=== PATIENT | female | born 1995 | race Native Hawaiian/Other Pacific Islander ===

== ENCOUNTER 2024-04-15 13:29 | Outpatient (CLI) | payer OTHER, MEDICAID, SELFPAY ==
--- OUTSIDE RECORDS SUMMARY | 2024-04-16 23:57 | XMS_ITS | Clinical Summary ---
Author Organization [facility] [facility] Address [place], [place] [address] Care Team Providers Care Crime Investigator Special Agent Name Role Phone CYNTHIA Mckoy Elizabeth Unavailable [phone] Aranza Mendez MD Primary Care Provi eloisa [...] Description 04/13/2024 8:25 AM CDT OB Encounter [address] [address] Aranza Mendez MD Testing (Group B strep); Care (37w2d) 04/13/2024 Travel 04/09/2024 1:10 PM CDT OB Encounter [address] [address] Aranza Mendez MD Care (36w5d) 04/09/2024 9:56 AM CDT - 04/09/2024 11:59 PM CDT Hospital Encounter [facility] [address] [place] [address] Varicose veins during ; Class 2 severe obesity with body mass index (BMI) of 35 to 39.9 with serious comorbidity (HC); Encounter for supervision of other normal in third trimester 04/09/2024 Travel 03/26/2024 10:55 AM CDT OB Encounter [address] [address] Aranza Mendez MD Care (34w5d) 03/26/2024 Travel 03/09/2024 8:45 AM CDT Office Visit [address] [address] Karina Bennett MD Varicose Veins (Have gotten worse since last OB visit. Painful, sometimes they are warm and swollen) 03/09/2024 Travel 03/09/2024 Nurse Triage [address] [address] Aranza Mendez MD Leg Pain/problem 03/06/2024 10:20 AM CDT Office Visit [facility] [address] [place] [phone] Maria C Hoover, ROYCE Eye Exam 03/06/2024 Travel 02/15/2024 8:25 AM CDT OB Encounter [address] [address] Aranza Mendez MD Care (29w0d) 02/15/2024 Travel 01/16/2024 11:20 AM CDT OB Encounter [address] [address] Aranza Mendez MD Care (24w5d) 01/16/2024 Travel [...] Estimated Date of Delivery 09/16/2023 - Present (04/16/2024) 05/02/2024 (set by Eva Mendez MD on 10/17/2023 based on Ultrasound on 09/27/2023) Dating Summary Based On MARIA DEL ROSARIO GA Diff Last Menstrual Period on 07/20/2023 (Within Week s) 04/25/2024 +1w0d Ultrasound on 09/27/2023 05/02/2024 Working GA:8w6d Alternate MARIA DEL ROSARIO Entry 04/25/2024 +1w0d Overview and Plan sex:Male Delivery Plans Planned delivery method:Vaginal Planned anesthesia:None Vitals Pregravid Weight Height TWG (As of 04/16/2024) Pregrav id BMI 1.594 m (5' 2.75) [...] alone Communication Method: Patient is active on Omeros and has been instructed that results/communications will be made via Omeros If a phone call is needed, the [...] repeat growth ultrasound pending. Vitamin D: take 6220-0597 daily. Continue prenatals. ~ Follow up: 1 [...] other Communication Method: Patient is active on Omeros and has been instructed that results/communications will be made via Omeros If a phone call is needed, the [...] repeat in third trimester. Vitamin D: take 0948-9204 daily. Continue prenatals. THUAN: -Continue iron, check [...] alone Communication Method: Patient is active on Omeros and has been instructed that results/communications will be made via Omeros If a phone call is needed, the [...] at night. Any Vaginal Bleeding?: no Contractions?: [place] spivey Urinary Complaints?: no Movement: yes Patient [...] return OB visit. ICD-10-CM 1. Need for fsmbmmimdz-saxvxsg-nqwyauxhi (Tdap) vaccine Z23 2. Supervision of other [...] repeat in third trimester. Vitamin D: take 3212-0930 daily. Continue prenatals. THUAN: -Continue iron, check [...] alone Communication Method: Patient is active on Omeros and has been instructed that results/communications will be made via Omeros If a phone call is needed, the preferred number is: Mobile May we leave a detailed message at this number? Yes Tiffanie Valerio, [facility] 01/16/2024 11:41 AM See OB Vitals section [...] repeat in third trimester. Vitamin D: take 5150-3914 daily. Continue prenatals. ~ Follow up: 4 [...] other Communication Method: Patient is active on Omeros and has been instructed that results/communications will be made via Omeros If a phone call is needed, the [...] ultrasound recommended -Hemoglobin a1c Vitamin D: take 1218-1561 daily. Continue prenatals. Satisfactory exam. Demonstrates appropriate [...] been talking with public health from the [facility] for services. Has WIC. Has a [...] Pap smear for cervical cancer screening Z12.4 SKI PATROL OFFICER THIN PREP PAP SCREEN IMAGED 7. BV [...] ultrasound recommended -Hemoglobin a1c Vitamin D: take 6334-4889 daily. Continue prenatals. Satisfactory exam. Demonstrates appropriate [...] Total time preparing to see this patient, swkn-mu-hhqt time, and coordinating care time on the same calendar date: 45 minutes. GRITY CONSULTANT Progress Notes - OB Encounte r - 09/16/2023 - GA:7w2d 09/16/2023 - 7w2d - Ashley Spencer RN See staff note. Ashley Spencer RN .................... 09/16/2023 9:48 AM GRITY CONSULTANT Last Filed Vital Signs Vital Sign Reading Time Taken Comments Blood Pressure 104/66 04/13/2024 8:38 AM CDT Pulse 80 04/13/2024 8:38 AM CDT Temperature 36.7 ??C (98.1 ??F) 08/15/2020 7:17 AM CS T Respiratory Rate 12 03/09/2024 8:58 AM CDT Oxygen Saturation 98% 08/15/2020 11:07 AM INTEGRITY CONSULTANT Inhaled Oxygen Concentration - - Weight 97.6 kg (215 lb 3.2 oz) 04/13/2024 8:38 A M CDT Height 159.4 cm (5' 2.75) 09/16/2023 9:50 AM CS T Body Mass Index 38.43 09/16/2023 9:50 AM INTEGRITY CONSULTANT Plan of Treatment Upcoming Encounters Date Type Department Care Team (Late st Contact Info) Description 04/18/2024 11:45 AM CDT OB Encounter [address] [phone] Aranza Mendez MD [address] [place] [address] 04/23/2024 11:45 AM CDT OB Encounter [facility] [address] [place] [address] Aranza Mendez MD [address] [place] [address] 05/02/2024 Hospital Encounter [facility] [address] [place] [address] Aranza Mendez MD [address] [place] [address] 05/02/2024 1:10 PM CDT OB Encounter [address] [place] [phone] Aranza Mendez MD 100 [facility] [place] [address] 05/07/2024 1:10 PM CDT OB Encounter [facility] [address] [facility] [phone] Aranza Mendez MD [address] [facility], [place] [phone] Health Maintenance Due Date Last Done Comments [...] SIGNS OF RELAPSE Diet Rosita Russo V, BRIDAL GOWN FITTER Note: Patient will be able to get her medications, Zoloft, to manage her symptoms of depression. Other Diet No Rosita Tobar LICSW Note: Patient will enroll in the [employer] care academy. Other General Yes Rosita Tobar [...] HPV THIN PREP Routine 10/17/2023 2:11 PM INTEGRITY CONSULTANT Pap smear for cervical cancer screening ANTI HIV 1/2 Routine 09/27/2023 9:00 AM INTEGRITY CONSULTANT Possible , not yet confirmed ANTI HCV Routine 09/27/2023 9:00 AM INTEGRITY CONSULTANT Possible , not yet confirmed from Last [...] - 16.0 g/dL 03/26/2024 12:04 PM CDT [facility] MCV 83 80 - 100 fL 03/26/2024 12:04 PM T [facility] Blood BLOOD SPECIMEN / Unknown Venipuncture / Unknown 03/26/2024 11:50 AM CDT 03/26/2024 11:51 AM CDT Aranza Mendez MD HEMATOLOGY [facility] [address] [place] [address] * VITAMIN D 25 (DEFICIENCY) (01/16/2024 12:34 PM CDT) VITAMIN D TOTAL 30.6 20.0 - 80.0 ng/mL 01/17/2024 11:33 AM CDT [facility] Blood BLOOD SPECIMEN / Unknown Venipuncture / Unknown 01/16/2024 12:34 PM CDT 01/16/2024 12:34 PM CDT Narrative [facility] - 01/17/2024 11:33 AM CDT ? Vitamin D Status Deficiency: ? <20 ng/mL Insufficiency: ?20-29 ng/mL Sufficiency: ?30-80 ng/mL Possible Toxicity: ??>80 ng/mL Based on [place] of Medicine recommendations Biotin supplements may cause clinically significant interference for this test assay. ??If interference is suspected, it is strongly recommended that biotin is discontinued for at least one week prior to retesting. Aranza Mendez MD SEND OUTS Performing Organization Address City/[facility]/ZIP Co de Phone Number [facility] [address] [place] [address], * GLUCOSE,GESTATIONAL (01/16/2024 12:34 PM CDT) GLUCOSE,GESTAT IONAL 109 70 - 139 mg/dL 01/16/2024 2:11 PM CDT [facility] Blood BLOOD SPECIMEN / Unknown Venipuncture / Unknown 01/16/2024 12:34 PM CDT 01/16/2024 12:34 PM CDT Aranza Mendez MD CHEMISTRY [facility] [address] [place] [address] * (ABNORMAL) HPV HIGH RISK (10/17/2023 2:11 PM INTEGRITY CONSULTANT) TYPE 16 Negative Negative 10/21/2023 7:07 AM INTEGRITY CONSULTANT [facility] TYPE 18 Negative Negative 10/21/2023 7:07 AM INTEGRITY CONSULTANT [facility] OTHER HIGH RISK TYPES Positive(A) Negative 10/21/2023 7:07 AM INTEGRITY CONSULTANT [facility] Other (Cervical) Non-Blood / Unknown 10/17/2023 2:11 PM INTEGRITY CONSULTANT 10/18/2023 10:18 AM INTEGRITY CONSULTANT Narrative [facility] - 10/21/2023 7:07 AM INTEGRITY CONSULTANT Specimen is positive for the DNA of any one of, or combination of, the following high risk HPV types: 31, 33, 35, 39, 45, 51, 52, 56, 58, 59, 66, 68. HPV types 16 and 18 DNA were undetectable or below the pre-set threshold. ? Methodology: Ciara Milan 4800 HPV Test Aranza Mendez MD MICROBIOLOG Y Performing Organization Address [facility]/ZIP Co de Phone Number [facility] [address] [place] [address], * ANTI HCV (09/27/2023 9:00 AM INTEGRITY CONSULTANT) HEPATITIS C ANTIBODY Non-Reacti ve Non-React robert 09/28/2023 4:48 AM INTEGRITY CONSULTANT [facility] Comment:Please note, per www .CDC.gov: If a patient is known to be at high risk of HCV infection, or is symptomatic, and the physician's suspicion of HCV infection is high, HCV RNA testing is often employed and is of diagnostic value, even after an initial negative anti-HCV test result. Blood BLOOD SPECIMEN / Unknown Butterfly / Unknown 09/27/2023 9:00 AM INTEGRITY CONSULTANT 09/27/2023 9:02 AM INTEGRITY CONSULTANT Aranza Mendez MD SEND OUTS [facility] [address] [place] [address], * ANTI HIV 1/2 (09/27/2023 9:00 AM INTEGRITY CONSULTANT) HIV-1/HIV-2 SCREEN Non-Reacti ve Non-Reacti ve 09/28/2023 4:54 AM INTEGRITY CONSULTANT [facility] Comment:HIV-1 p24 and HIV-1/ HIV-2 Ab Not Detected. Blood BLOOD SPECIMEN / Unknown Butterfly / Unknown 09/27/2023 9:00 AM INTEGRITY CONSULTANT 09/27/2023 9:02 AM INTEGRITY CONSULTANT Aranza Mendez MD SEND OUTS Performing Organization Address City/[facility]/ZIP Co de Phone Number [facility] [address] [place] [address], from Last 3 Months or Most Recently [...] 7:17 PM 09/21/2016 12:38 PM Care Teams Crime Investigator Special Agent Relationship Specialty Start Date End Date Aranza Mendez MD [address] [place] [address] PCP - General Family Practice 01/19/24 Rosita Tobar V, [facility] [address] [address] Mill Attendant Fur Dry Cleaner Hand 10/08/16
== END 2024-04-15 13:30 | disposition home or self-care (01) ==
LOC: AMB 04-16 23:55
PROVIDERS: Visit Provider Emergency Medicine Emergency Medical Services
DX: T14.90XA Injury, unspecified, initial encounter (principal); O26.893 Other specified pregnancy related conditions, third trimester; Z3A.37 37 weeks gestation of pregnancy; V49.40XA Driver injured in collision with unspecified motor vehicles in traffic accident, initial encounter; Y92.410 Unspecified street and highway as the place of occurrence of the external cause
CPT/HCPCS: A0425; A0427

== ENCOUNTER 2024-04-15 14:03 | Outpatient (CLI) | payer OTHER, MEDICAID, SELFPAY ==
[2024-04-15] VITALS (15 sets, daily range): BP systolic 107–129; BP diastolic 62–85; PULSE 74–100; RESP 15–24; TEMP 36.4–36.9; O2SAT 97–99
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
--- OUTSIDE RECORDS SUMMARY | 2024-04-15 15:33 | XMS_ITS | Clinical Summary ---
Author Organization [email or web address] [facility] Address [place], [place] [address] Care Team Providers Care Biology Research Assistant Name Role Phone CYNTHIA Mckoy Elizabeth Unavailable [phone] Aranza Mendez MD Primary Care Provi eloisa Allergies No known active allergies Medications Medication Sig Dispensed Refills Start Date End Date Status vitamin-folic acid 1 mg ( RX) tablet/capsuleIndica tions: Take 1 tablet by mouth once daily. Indications: Active cholecalciferol (Vitamin D) 1,000 unit capsule Take 3,000 units by mouth once daily. Active pyridoxine, vitamin B6, (Vitamin B-6) 100 mg tablet Take 100 mg by mouth once daily. 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 60 Tablet 2 12/13/2023 Active ferrous sulfate 325 mg delayed release tabletIndications:Davidson pervision of other normal , antepartum Take 1 Tablet (325 mg) by mouth once daily with a meal. 90 Tablet 3 01/16/2024 Active ascorbic acid, vitamin C, (Vitamin C) 250 mg tabletIndications:Ir on deficiency anemia secondary to inadequate dietary iron intake Take 1 Tablet (250 mg) by mouth once daily. 90 Tablet 1 03/28/2024 Active Active Problems Problem Noted Date Diagnosed Date LGSIL of cervix of undetermined significance 06/2024 Overview: 11/2020 ASCUS/HPV+, 16/18 negative 11/2021 LSIL 10/2023 ASCUS/HPV+, HPV 16/18 Negative 11/2023 Reassuring colposcopy: no biopsy due to Plan: HPV and Pap smear at 6 week post visit. Supervision of other normal , antepartu m 10/17/2023 Generalized anxiety disorder 07/12/2018 Moderate episode of recurrent major depressive d isorder 07/12/2018 Vitamin D deficiency 06/26/2015 Social phobia 06/21/2015 Panic disorder without agoraphobia 06/21/2015 Estimated Date of Delivery Comme nts Yes 05/02/2024 Based on Ultraso und Resolved Problems Problem Noted Date Diagnosed Date Resolved Date Encounter for supervision of normal first in third trimester 02/04/2017 10/17/2023 Major depression 06/21/2015 10/17/2023 Cannabis abuse 06/21/2015 10/17/2023 Intentional acetaminophen overdose 06/20/2015 10/17/2023 Encounters Date Type Department Care Team Description 04/13/2024 8:25 AM CDT OB Encounter [address] [phone] Aranza Mendez MD Testing (Group B strep); Care (37w2d) 04/13/2024 Travel 04/09/2024 1:10 PM CDT OB Encounter [address] [phone] Aranza Mendez MD Care (36w5d) 04/09/2024 9:56 AM CDT - 04/09/2024 11:59 PM CDT Hospital Encounter [facility] [address] [place] [address] Varicose veins during ; Class 2 severe obesity with body mass index (BMI) of 35 to 39.9 with serious comorbidity (HC); Encounter for supervision of other normal in third trimester 04/09/2024 Travel 03/26/2024 10:55 AM CDT OB Encounter [address] [phone] Aranza Mendez MD Care (34w5d) 03/26/2024 Travel 03/09/2024 8:45 AM CDT Office Visit [address] [phone] Karina Bennett MD Varicose Veins (Have gotten worse since last OB visit. Painful, sometimes they are warm and swollen) 03/09/2024 Travel 03/09/2024 Nurse Triage [address] [address] Aranza Mendez MD Leg Pain/problem 03/06/2024 10:20 AM CDT Office Visit [facility] [address] [place] [phone] Maria C Hoover, ROYCE Eye Exam 03/06/2024 Travel 02/15/2024 8:25 AM CDT OB Encounter [address] [address] Aranza Mendez MD Care (29w0d) 02/15/2024 Travel 01/16/2024 11:20 AM CDT OB Encounter [address] [phone] Aranza Mendez MD Care (24w5d) 01/16/2024 Travel from Last 3 Months Immunizations Name Administration Dates Next Due DTaP 04/24/2002, 9,06/02/1998,03/11/1998 ,1997 HIB PRP-OMP (PedvaxHIB) 11/30/2000,06/02/1998,,1997 Hepatitis A (Peds) 11/15/2008,11/30/2000 Hepatitis B (Peds) 03/11/1998,1997, 998 Human Papilloma Virus Vaccine 05/16/2009, 009,11/15/2008 Influenza, IIV3 (Age >=3 years) 07/01/2016,05/08,10/10/2006,06/14/2006 Influenza, IIV4 06/21/2015 MMR 04/30/2002,10/07/1998 Meningococcal Vaccine (Menactra) 11/15/2008 Oral Polio Vaccine 01/06/1999,06/02/1998, 998,1997 Tdap 02/15/2024,11/15/2008 Varicella Vaccine 12/29/2007,01/14/2000 Family History Medical History Relation Name Comments Unknown Father Diabetes Mother Hypertension Mother Lung disease Sister Relation Name Status Comments Father Other Mother Alive Sister Alive Social History Tobacco Use Types Packs/Day Years Used Date Smoking Tobacco: Never Passive Smoke Exposure: Past Smokeless Tobacco: Never Tobacco Cessation:Counseling Given: Yes Alcohol Use Standard Drinks/Week Comments Not Currently 0 (1 standard drink = 0.6 oz pur e alcohol) PHQ-2 Answer Date Recorded PHQ-2 TOTAL SCORE 5 10/17/2023 Social Connections Answer Date Recorded Frequency of Communication with Friends and Fami ly 0 02/15/2024 Financial Resource Strain Answer Date R ecorded Difficulty of Paying Living Expenses 2 02/15/2024 Difficulty of Paying Living Expenses 1 02/15/2024 Food Insecurity Answer Date Recorded Worried About Running Out of Food in the Last Ye ar 1 02/15/2024 Transportation Needs Answer Date Record ed Lack of Transportation (Medical) 1 02/15/2024 Housing Stability Answer Date Recorded Unable to Pay for Housing in the Last Year 1 02/15/2024 Estimated Date of Delivery Comme nts Yes 05/02/2024 Based on Ultraso und Sex and Gender Information Value Date Recorded Sex Assigned at Not on file Gender Identity Not on file Sexual Orientation Not on file Obstetrics History Para Term AB IAB SAB Ectopic Multiple Livin g Live Births 3 2 2 0 0 0 0 0 0 2 2 Date Outcome GA Total Labor Labor/2nd/3rd Weight Sex Type Anes PTL Lefty A1 A5 Name Clin 017 Term M Vag Living Complications:None Delivery Location:Hospital Comments:40w0d, 6lbs 1 2oz 023 Term F Living Delivery Location:Hospital Comments:41 weeks, 6lb s4oz Current Summary Episode Dates Number of Fetuses Estimated Date of Delivery 09/16/2023 - Present (04/15/2024) 05/02/2024 (set by Eva Mendez MD on 10/17/2023 based on Ultrasound on 09/27/2023) Dating Summary Based On [facility] [place] Diff Last Menstrual Period on 07/20/2023 (Within Week s) 04/25/2024 +1w0d Ultrasound on 09/27/2023 05/02/2024 Working GA:8w6d Alternate [facility] Entry 04/25/2024 +1w0d Overview and Plan sex:Male Delivery Plans Planned delivery method:Vaginal Planned anesthesia:None Vitals Pregravid Weight Height TWG (As of 04/15/2024) Pregrav id BMI 1.594 m (5' 2.75) Date GA Fund Present FHR Mvmt BP Weight Edema Alb Glu Ket Dil/ Eff/Sta 4 8w6d Inpatient data not displayed here. See encounter summary. 4 19w6d Inpatient data not displayed here. See encounter summary. 4 36w5d Inpatient data not displayed here. See encounter summary. Notes Progress Notes - OB Encounte r - 04/13/2024 - GA:37w2d 04/13/2024 - 37w2d - Aranza Mendez MD Patient here for repeat GBS swab as her last had an error. Next visit next week. FHT 150. Aranza Mendez MD 04/13/2024 8:56 AM Progress Notes - OB Encounte r - 04/09/2024 - GA:36w5d 04/09/2024 - 36w5d - Aranza Mendez MD Nursing Notes: Tiffanie Valerio MA 04/09/2024 1:24 PM Signed Chief Complaint Patient presents with Care 36w5d Additional visit information (chief complaint/health maintenance) shared by patient: Health Maintenance Due Topic Date Due COVID-19 vaccine series ( season) Never done Health maintenance reviewed with patient No Patient presents for an in-person office visit: alone Communication Method: Patient is active on [employer] and has been instructed that results/communications will be made via [employer] If a phone call is needed, the preferred number is: Mobile May we leave a detailed message at this number? Yes Tiffanie Valerio CMA 04/09/2024 1:24 PM See OB Vitals section also. SUBJECTIVE: Queenie Holman at 36w5d with Estimated Date of Delivery: 05/02/24 who presents for return OB visit. Concerns/complaints: None. Doing well. Has had a few contractions here and there. Any Vaginal Bleeding?: no Contractions?:yes, description: irregular. Urinary Complaints?: no Vaginal Discharge?:no Patient Active Problem List Diagnosis Code Social phobia F40.10 Panic disorder without agoraphobia F41.0 Vitamin D deficiency E55.9 Generalized anxiety disorder F41.1 Moderate episode of recurrent major depressive disorder (HC) F33.1 Supervision of other normal , antepartum Z34.80 LGSIL of cervix of undetermined significance R87.612 OBJECTIVE: PHYSICAL EXAM: BP 118/72 (Cuff Site: Right Arm, Position: Sitting, Cuff Size: Adult Large) Pulse (!) 102 Wt 96.4 kg (212 lb 9.6 oz) LMP 07/20/2023 (Within Weeks) BMI 37.96 kg/m?? See OB Vitals section also. General Appearance: Pleasant, alert, appropriate appearance for age. No acute distress Chest/Respiratory Exam: Normal chest wall and respirations. Clear to auscultation. Cardiovascular Exam: Regular rate and rhythm. Normal S1, S2 Lower extremity edema: trace ASSESSMENT/PLAN: Queenie Holman at 36w5d with Estimated Date of Delivery: 05/02/24 who presents for return OB visit. ICD-10-CM 1. Encounter for supervision of other normal in third trimester Z34.83 2. Iron deficiency anemia secondary to inadequate dietary iron intake D50.8 3. Class 2 severe obesity with body mass index (BMI) of 35 to 39.9 with serious comorbidity (HC) E66.01 # with Estimated Date of Delivery: 05/02/24 based on 8 week 6 day ultrasound inconsistent with LMP (estimated LMP). Anxiety Depression: Continue sertraline. Pre- BMI 35 -Level II ultrasound recommended, patient opted out of this and got basic anatomy scan. -Reading on repeat growth ultrasound pending. Vitamin D: take 0155-2302 daily. Continue prenatals. ~ Follow up: 1 week(s); earlier if any problems. ~ Instructed to return to clinic or call if symptoms change or worsen. No orders of the defined types were placed in this encounter. Aranza Mendez MD Progress Notes - OB Encounte r - 03/26/2024 - GA:34w5d 03/26/2024 - 34w5d - Aranza Mendez MD Nursing Notes: Tiffanie Valerio 03/26/2024 11:19 AM Signed Chief Complaint Patient presents with Care 34w5d Additional visit information (chief complaint/health maintenance) shared by patient: Health Maintenance Due Topic Date Due COVID-19 vaccine series () Never done Health maintenance reviewed with patient No Patient presents for an in-person office visit: with spouse/significant other Communication Method: Patient is active on [employer] and has been instructed that results/communications will be made via [employer] If a phone call is needed, the preferred number is: Mobile May we leave a detailed message at this number? Yes Tiffanie Valerio CMA 03/26/2024 11:03 AM See OB Vitals section also. SUBJECTIVE: Queenie Holman at 34w5d with Estimated Date of Delivery: 05/02/24 who presents for return OB visit. Concerns/complaints: Veins are still painful. has upcoming ultrasound. THUAN: Taking iron pills. Any Vaginal Bleeding?: no Contractions?:no Urinary Complaints?: no Vaginal Discharge?:no Movement: yes Patient Active Problem List Diagnosis Code Social phobia F40.10 Panic disorder without agoraphobia F41.0 Vitamin D deficiency E55.9 Generalized anxiety disorder F41.1 Moderate episode of recurrent major depressive disorder (HC) F33.1 Supervision of other normal , antepartum Z34.80 LGSIL of cervix of undetermined significance R87.612 OBJECTIVE: PHYSICAL EXAM: BP 98/56 (Cuff Site: Right Arm, Position: Sitting, Cuff Size: Adult Large) Pulse 82 Wt 94.8 kg (208 lb 14.4 oz) LMP 07/20/2023 (Within Weeks) BMI 37.30 kg/m?? See OB Vitals section also. General Appearance: Pleasant, alert, appropriate appearance for age. No acute distress Chest/Respiratory Exam: Normal chest wall and respirations. Clear to auscultation. Cardiovascular Exam: Regular rate and rhythm. Normal S1, S2 Lower extremity edema: scant, right sided varicose veins, tenderness to palpation but without erythema. ASSESSMENT/PLAN: Queenie Holman at 34w5d with Estimated Date of Delivery: 05/02/24 who presents for return OB visit. ICD-10-CM 1. Encounter for supervision of other normal in third trimester Z34.83 2. Class 2 severe obesity with body mass index (BMI) of 35 to 39.9 with serious comorbidity (HC) E66.01 3. Iron deficiency anemia secondary to inadequate dietary iron intake D50.8 4. Varicose veins of both lower extremities with inflammation I83.11 I83.12 # with Estimated Date of Delivery: 05/02/24 based on 8 week 6 day ultrasound inconsistent with LMP (estimated LMP). Anxiety Depression: Continue sertraline. Pre- BMI 35 -Level II ultrasound recommended, patient opted out of this and got basic anatomy scan. We can repeat in third trimester. Vitamin D: take 9431-8647 daily. Continue prenatals. THUAN: -Continue iron, check hemoglobin at next visit with syphilis. Varicose Veins Should improve after . ~ Follow up: 2 week(s); earlier if any problems. ~ Instructed to return to clinic or call if symptoms change or worsen. ~ Unmedicated if possible. Orders Placed This Encounter US OB FOLLOW UP ANY TRI SINGLE TA HEMOGLOBIN Aranza Mendez MD Progress Notes - OB Encounte r - 02/15/2024 - GA:29w0d 02/15/2024 - 29w0d - Aranza Mendez MD Nursing Notes: Tiffanie Valerio 02/15/2024 9:04 AM Signed Chief Complaint Patient presents with Care 29w0d Additional visit information (chief complaint/health maintenance) shared by patient: Health Maintenance Due Topic Date Due Tetanus booster 11/15/2018 COVID-19 vaccine series ( season) Never done Health maintenance reviewed with patient Yes Patient presents for an in-person office visit: alone Communication Method: Patient is active on [employer] and has been instructed that results/communications will be made via [employer] If a phone call is needed, the preferred number is: Mobile May we leave a detailed message at this number? Yes Tiffanie Valerio CMA 02/15/2024 8:41 AM See OB Vitals section also. SUBJECTIVE: Queenie Holman at 29w0d with Estimated Date of Delivery: 05/02/24 who presents for return OB visit. Concerns/complaints: Having some increased verucose veins and having some restless legs at night. Any Vaginal Bleeding?: no Contractions?: [place] spivey Urinary Complaints?: no Movement: yes Patient Active Problem List Diagnosis Code Social phobia F40.10 Panic disorder without agoraphobia F41.0 Vitamin D deficiency E55.9 Generalized anxiety disorder F41.1 Moderate episode of recurrent major depressive disorder (HC) F33.1 Supervision of other normal , antepartum Z34.80 LGSIL of cervix of undetermined significance R87.612 OBJECTIVE: PHYSICAL EXAM: BP 100/62 (Cuff Site: Right Arm, Position: Sitting, Cuff Size: Adult Large) Pulse 72 Wt 93.7 kg (206 lb 9.6 oz) LMP 07/20/2023 (Within Weeks) BMI 36.89 kg/m?? See OB Vitals section also. General Appearance: Pleasant, alert, appropriate appearance for age. No acute distress Chest/Respiratory Exam: Normal chest wall and respirations. Clear to auscultation. Cardiovascular Exam: Regular rate and rhythm. Normal S1, S2 Lower extremity edema: none. Does have non-tender verucose veins on the right leg without erythema. ASSESSMENT/PLAN: Queenie Holman at 29w0d with Estimated Date of Delivery: 05/02/24 who presents for return OB visit. ICD-10-CM 1. Need for psumtzkghw-piyyqlm-ujyqcimse (Tdap) vaccine Z23 2. Supervision of other normal , antepartum Z34.80 3. Moderate episode of recurrent major depressive disorder (HC) F33.1 4. Vitamin D deficiency E55.9 # with Estimated Date of Delivery: 05/02/24 based on 8 week 6 day ultrasound inconsistent with LMP (estimated LMP). Anxiety Depression: Continue sertraline. Pre- BMI 35 -Level II ultrasound recommended, patient opted out of this and got basic anatomy scan. We can repeat in third trimester. Vitamin D: take 4329-6116 daily. Continue prenatals. THUAN: -Continue iron, check hemoglobin at next visit with syphilis. Verucose Veins Should improve after . ~ Follow up: 4 week(s); earlier if any problems. ~ Instructed to return to clinic or call if symptoms change or worsen. Orders Placed This Encounter TDAP VACCINE IM [[id number]] Aranza Mendez MD Progress Notes - OB Encounte r - 01/16/2024 - GA:24w5d 01/16/2024 - 24w5d - Aranza Mendez MD Nursing Notes: Tiffanie Valerio 01/16/2024 11:41 AM Sign at exiting of workspace Chief Complaint Patient presents with Care 24w5d Additional visit information (chief complaint/health maintenance) shared by patient: Health Maintenance Due Topic Date Due Tetanus booster 11/15/2018 COVID-19 vaccine series ( season) Never done Health maintenance reviewed with patient No Patient presents for an in-person office visit: alone Communication Method: Patient is active on [employer] and has been instructed that results/communications will be made via [employer] If a phone call is needed, the preferred number is: Mobile May we leave a detailed message at this number? Yes Tiffanie Valerio, [facility] 01/16/2024 11:41 AM See OB Vitals section also. SUBJECTIVE: Queenie Holman at 24w5d with Estimated Date of Delivery: 05/02/24 who presents for return OB visit. Concerns/complaints: Has been getting some headaches. She wonders if she needs to get her eyes checked because her eyes are quite blurry, has to squint to see far away. She does have these symptoms when she doesn't have the headaches, but they sometimes gets worse with the headaches. Headaches are all around the head. Sleep is on and off- a bit more uncomfortable. Does get light sensitivity but not phonophobia. Mood is okay. Sertraline is helping. Any Vaginal Bleeding?: no Contractions?:no Urinary Complaints?: no Vaginal Discharge?:no Patient Active Problem List Diagnosis Code Social phobia F40.10 Panic disorder without agoraphobia F41.0 Vitamin D deficiency E55.9 Generalized anxiety disorder F41.1 Moderate episode of recurrent major depressive disorder (HC) F33.1 Supervision of other normal , antepartum Z34.80 LGSIL of cervix of undetermined significance R87.612 OBJECTIVE: PHYSICAL EXAM: BP 104/62 (Cuff Site: Right Arm, Position: Sitting, Cuff Size: Adult Large) Pulse 82 Wt 94.8 kg (209 lb 1.6 oz) LMP 07/20/2023 (Within Weeks) BMI 37.34 kg/m?? See OB Vitals section also. General Appearance: Pleasant, alert, appropriate appearance for age. No acute distress Chest/Respiratory Exam: Normal chest wall and respirations. Clear to auscultation. Cardiovascular Exam: Regular rate and rhythm. Normal S1, S2 Lower extremity edema: ASSESSMENT/PLAN: Queenie Holman at 24w5d with Estimated Date of Delivery: 05/02/24 who presents for return OB visit. ICD-10-CM 1. Supervision of other normal , antepartum Z34.80 2. Blurry vision H53.8 3. Headache syndrome G44.89 4. Vitamin D deficiency E55.9 -For headaches, lets get you into see the eye doctors since you have issues with squinting and blurry vision. -Lets have you also try tylenol 650mg every 4 hours as needed for pain. -Make sure to work on good hydration and sleep. -If you get any red flag symptoms including chest pain, dizziness, numbness/tingling, weakness in parts of the body, severe vision changes (black out etc) then come in immediately. -Blood pressure is normal. Anxiety Depression: Continue sertraline. Pre- BMI 35 -Level II ultrasound recommended, patient opted out of this and got basic anatomy scan. We can repeat in third trimester. Vitamin D: take 1205-3363 daily. Continue prenatals. ~ Follow up: 4 week(s); earlier if any problems. ~ Instructed to return to clinic or call if symptoms change or worsen. Orders Placed This Encounter GLUCOSE,GESTATIONAL HEMOGLOBIN Aranza Mendez MD Progress Notes - OB Encounte r - 12/13/2023 - GA:19w6d 12/13/2023 - wd - Aranza Mendez MD Nursing Notes: Tiffanie Valerio 12/13/2023 2:34 PM Sign at exiting of workspace Chief Complaint Patient presents with Care 19w6d Additional visit information (chief complaint/health maintenance) shared by patient: patient states her pharmacy did not have the prescription for the sertraline so she has not been taking it. Health Maintenance Due Topic Date Due Tetanus booster 11/15/2018 COVID-19 vaccine series ( season) Never done Health maintenance reviewed with patient No Patient presents for an in-person office visit: with spouse/significant other Communication Method: Patient is active on [employer] and has been instructed that results/communications will be made via [employer] If a phone call is needed, the preferred number is: Mobile May we leave a detailed message at this number? Yes Tiffanie Valerio CMA 12/13/2023 2:34 PM See OB Vitals section also. SUBJECTIVE: Queenie Holman at 19w6d with Estimated Date of Delivery: 05/02/24 who presents for return OB visit. Concerns/complaints: We were going to start patient on sertraline last visit but pharmacy told her they didn't have prescription. Would like to be on it. Mood is low but stable. Her niece is back to living with patients mom and sister. Patient went to try to get colp done and they were able to stain the cervix but unable to complete the biopsy. Recommended she come back . Had ultrasound this morning. Any Vaginal Bleeding?: no Contractions?:no Urinary Complaints?: no Vaginal Discharge?:no Patient Active Problem List Diagnosis Code Social phobia F40.10 Panic disorder without agoraphobia F41.0 Vitamin D deficiency E55.9 Generalized anxiety disorder F41.1 Moderate episode of recurrent major depressive disorder (HC) F33.1 Supervision of other normal , antepartum Z34.80 LGSIL of cervix of undetermined significance R87.612 OBJECTIVE: PHYSICAL EXAM: BP 90/60 (Cuff Site: Right Arm, Position: Sitting, Cuff Size: Adult Large) Pulse 68 Wt 94.4 kg (208 lb 3.2 oz) LMP 07/20/2023 (Within Weeks) BMI 37.18 kg/m?? See OB Vitals section also. General Appearance: Pleasant, alert, appropriate appearance for age. No acute distress Chest/Respiratory Exam: Normal chest wall and respirations. Clear to auscultation. Cardiovascular Exam: Regular rate and rhythm. Normal S1, S2 Lower extremity edema: ASSESSMENT/PLAN: Queenie Holman at 19w6d with Estimated Date of Delivery: 05/02/24 who presents for return OB visit. ICD-10-CM 1. Supervision of other normal , antepartum Z34.80 2. Anxiety F41.9 3. Current severe episode of major depressive disorder without psychotic features without prior episode (HC) F32.2 Anxiety Depression: Start and sertraline, psychology consult. No suicidal ideation. Call [phone] immediately if this happens. Already hooked in with RN public health. Pre- BMI 35 -Level II ultrasound recommended -Hemoglobin a1c Vitamin D: take 3127-6199 daily. Continue prenatals. Satisfactory exam. Demonstrates appropriate and health-seeking behaviors toward her . Verbalizes good understanding of care schedule and the importance of coming to each visit as scheduled. Start/continue vitamins. Reviewed labs. She was encouraged to call the office with any questions or concerns. Pubic symphysis pain: -Patient has PT exercises for home. ASCUS: -Tried colp during and unable to complete, will need . ~ Follow up: 4 week(s); earlier if any problems. ~ Instructed to return to clinic or call if symptoms change or worsen. Orders Placed This Encounter sertraline (ZOLOFT) 50 mg tablet rAanza Mendez MD Progress Notes - OB Encounte r - 10/17/2023 - GA:11w5d 10/17/2023 - d - Aranza Mendez MD FIRST OB VISIT HPI: Queenie Holman is a 28 y.o. female at 12w5d with quiroz intrauterine here today for a initial OB exam. Estimated due date is Estimated Date of Delivery: based on ultrasound with irregular and approximate LMP. First day of last period 07/20/2023 but has irregular periods and was quite unsure of date. Patient is a in a bit of a difficult situation socially and is feeling quite overwhelmed. She has a 6 year old, a 5 month old, and is in the process of adopting her 1 year old niece as her nieces parents have been neglectful. She is now . This has been very difficult emotionally. She has been talking with public health from the [facility] for services. Has WIC. Has a history of depression and anxiety and this has been really flaring. Wanting to discuss therapy and medication. She is open to starting an SSRI. She has tried a few in the past, lexapro and sertraline. She doesn't remember bad side effects with either of these. She never took them consistently enough to see if they would have an effect. PHQ-9 is 20. No suicidal ideation. Nausea/Vomiting: a bit, but not severe. Eating well. Breast tenderness: no Fatigue: yes Bleeding: no Taking vitamins: yes Options of sequential screen, cell-free DNA testing, amniocentesis were discussed. Patient is interested in pursuing testing. AMA: no Previous : no OB History Para Term AB Living 3 2 2 0 0 2 SAB IAB Ectopic Multiple Live Births 0 0 0 0 2 # Outcome Date GA Lbr Adonay/2nd Weight Sex Delivery Anes PTL Lv 3 Current 2 Term 04/28/23 F LEFTY 1 Term 02/04/17 M Vag LEFTY Past Medical History: . Date Anxiety Asthma Depression Past Surgical History: . Laterality Date APPENDECTOMY 08/2016 dog bite repair/face Family History Problem Relation Age of Onset Diabetes Mother Hypertension Mother Unknown Father Lung disease Sister Social History Tobacco Use Smoking status: Never Passive exposure: Past Smokeless tobacco: Never Substance Use Topics Alcohol use: Not Currently Current Outpatient Medications Medication Sig cholecalciferol (Vitamin D) 1,000 unit capsule Take 3,000 units by mouth once daily. medication order composer Calcium 1 tablet daily vitamin-folic acid 1 mg ( RX) tablet/capsule Take 1 tablet by mouth once daily. Indications: pyridoxine, vitamin B6, (Vitamin B-6) 100 mg tablet Take 100 mg by mouth once daily. No current facility-administered medications for this visit. Medications have been reviewed by me and are current to the best of my knowledge and ability. ALLERGIES Patient has no known allergies. MENTAL HEALTH HISTORY History of psychiatric diagnosis: Anxiety, MDD Current mental health provider: No Currently taking any psychiatric medications? No INFECTION HISTORY Current Drug Use: none, no tobacco or vaping Relevant infection history from OB Questionnaire: none REVIEW OF SYSTEMS Comprehensive ROS complete and negative other than noted in HPI and on OB Questionnaire. PHYSICAL EXAM BP 128/72 (Cuff Site: Right Arm, Position: Sitting, Cuff Size: Adult Large) Pulse 86 Wt 92.2 kg (203 lb 3.2 oz) BMI 36.28 kg/m?? General Appearance: Alert, appropriate appearance for age. No acute distress. HEENT Exam: Grossly normal. Neck/Thyroid Exam: Supple, no masses, nodes or enlargement. Lungs: Clear to auscultation bilaterally. Breast Exam: Not indicated. Cardiovascular Exam: Regular rate and rhythm. S1, S2, no murmur. Abd: Soft, non-tender, no masses or organomegaly. Skin: no rashes or lesions. Lymphatics: no nodes palpable. Psychiatric Exam: Alert and oriented x 3, appropriate affect. Pelvic Exam Vulva and vagina appear normal. Cervix closed, long. Uterus: 12 wk sz, nontender. Adnexa: not palpable. Pelvimetry: Adequate pelvis. ASSESSMENT/PLAN 28 y.o. at 12w5d with quiroz intrauterine . ICD-10-CM 1. Supervision of other normal , antepartum Z34.80 HEMOGLOBIN A1C SCREENING DNA SCREEN SEND OUT 2. Anxiety F41.9 AMB CONSULT TO PSYCHOLOGY sertraline (ZOLOFT) 50 mg tablet 3. High risk social situation Z60.9 AMB CONSULT TO PSYCHOLOGY 4. Current severe episode of major depressive disorder without psychotic features without prior episode (HC) F32.2 AMB CONSULT TO PSYCHOLOGY sertraline (ZOLOFT) 50 mg tablet 5. Screening for diabetes mellitus Z13.1 HEMOGLOBIN A1C SCREENING 6. Pap smear for cervical cancer screening Z12.4 AS400 OPERATOR THIN PREP PAP SCREEN IMAGED 7. BV (bacterial vaginosis) N76.0 TRICHOMONAS, BC, AND BACTERIAL VAGINOSIS BY NATHANAEL B96.89 8. Class 2 severe obesity with body mass index (BMI) of 35 to 39.9 with serious comorbidity (HC) E66.01 Anxiety Depression: Start and sertraline, psychology consult. No suicidal ideation. Call [phone] immediately if this happens. Already hooked in with RN public health. Pre- BMI 35 -Level II ultrasound recommended -Hemoglobin a1c Vitamin D: take 8895-9040 daily. Continue prenatals. Satisfactory exam. Demonstrates appropriate and health-seeking behaviors toward her . Verbalizes good understanding of care schedule and the importance of coming to each visit as scheduled. Start/continue vitamins. Reviewed labs. She was encouraged to call the office with any questions or concerns. Pubic symphysis pain: will reach out to PT for suggestions for home exercises. Body mass index is 36.28 kg/m??. Diet and expected weight gain discussed with patient. DEPRESSION SCREEN PHQ Score and Severity Intervention: Start medication Aranza Mendez MD 10/17/2023 12:17 PM Total time preparing to see this patient, [id number] time, and coordinating care time on the same calendar date: 45 minutes. R LOADER OPERATOR Progress Notes - OB Encounte r - 09/16/2023 - GA:7w2d 09/16/2023 - 7w2d - Ashley Spencer RN See staff note. Ashley Spencer RN .................... 09/16/2023 9:48 AM R LOADER OPERATOR Last Filed Vital Signs Vital Sign Reading Time Taken Comments Blood Pressure 104/66 04/13/2024 8:38 AM CDT Pulse 80 04/13/2024 8:38 AM CDT Temperature 36.7 ??C (98.1 ??F) 08/15/2020 7:17 AM CS T Respiratory Rate 12 03/09/2024 8:58 AM CDT Oxygen Saturation 98% 08/15/2020 11:07 AM TOWER LOADER OPERATOR Inhaled Oxygen Concentration - - Weight 97.6 kg (215 lb 3.2 oz) 04/13/2024 8:38 A M CDT Height 159.4 cm (5' 2.75) 09/16/2023 9:50 AM CS T Body Mass Index 38.43 09/16/2023 9:50 AM TOWER LOADER OPERATOR Plan of Treatment Upcoming Encounters Date Type Department Care Team (Late st Contact Info) Description 04/18/2024 11:45 AM CDT OB Encounter [address] [phone] Aranza Mendez MD [address] [place] [address] 04/23/2024 11:45 AM CDT OB Encounter [facility] [address] [place] [phone] Aranza Mendez MD [address] [place] [address] 05/02/2024 Hospital Encounter [facility] [address] [place] [address] Aranza Mendez MD 100 [place] [address] 05/02/2024 1:10 PM CDT OB Encounter [address] [place] [phone] Aranza Mendez MD [address] [place] [address] 05/07/2024 1:10 PM CDT OB Encounter [facility] [address] [place] [phone] Aranza Mendez MD [address] [facility], [place] [phone] Health Maintenance Due Date Last Done Comments COVID-19 vaccine series ( season) 2024 Influenza for age 9-49 04/15/2024 6, 06/21/2015, 05/08/2009, Additional history exists Pap test for age 21-65 05/16/2024 4 (Verified in Care Everywhere or Patient Record), 10/17/2023, 10/17/2023 BMI (ht and wt on same day) for age 18+ 09/16/2024 09/16/2023, 02/03/2017, 09/20/2016 Depression screening for age 12+ 10/17/2024 10/18/2023, 10/17/2023 Tetanus booster 02/14/2034 02/15/2024, 11/15/2008 HPV series for age 9-26 Completed 05/16/20, 01/10/2009, 11/15/2008 HIV for age 15-65 Completed 09/27/2023 Hepatitis C screening for age 18-79 Completed 09/27/2023 Tdap Completed 02/15/2024, 11/15/2008 Pneumococcal series for age 6-64 Aged Out No longer eligible based on patient's age to complete this topic Goals Goal Patient Goal Type Associated Problems Recent Progress Patient-Stated? Author DEPRESSION-CLAIRE ENT CAN IDENTIFY SIGNS OF RELAPSE Diet Rosita Russo V, ROUTEMAN Note: Patient will be able to get her medications, Zoloft, to manage her symptoms of depression. Other Diet No Rosita Tobar LICSW Note: Patient will enroll in the [employer] care academy. Other General Yes Rosita Tobar LICSW Note: Patient will apply for food support and martin assistance.. Procedures Procedure Name Priority Date/Time Associated Diagnosis Comments US OB FOLLOW UP ANY TRI SINGLE TA Routine 04/09/2024 11:10 AM CDT Class 2 severe obesity with body mass index (BMI) of 35 to 39.9 with serious comorbidity (HC) Encounter for supervision of other normal in third trimester US VENOUS LOWER EXTREMITY RIGHT Routine 04/09/2024 10:30 AM CDT Varicose veins during HEMOGLOBIN Routine 03/26/2024 11:50 AM CDT Encounter for supervision of other normal in third trimester Iron deficiency anemia secondary to inadequate dietary iron intake VITAMIN D 25 (DEFICIENCY) Routine 01/16/2024 12:34 PM CDT Vitamin D deficiency HEMOGLOBIN Routine 01/16/2024 12:34 PM CDT Supervision of other normal , antepartum GLUCOSE,GESTATIONAL Routine 01/16/2024 1 2:34 PM CDT Supervision of other normal , antepartum HPV THIN PREP Routine 10/17/2023 2:11 PM TOWER LOADER OPERATOR Pap smear for cervical cancer screening ANTI HIV 1/2 Routine 09/27/2023 9:00 AM TOWER LOADER OPERATOR Possible , not yet confirmed ANTI HCV Routine 09/27/2023 9:00 AM TOWER LOADER OPERATOR Possible , not yet confirmed from Last 3 Months or Most Recently Relevant to Health Maintenance Results * US OB FOLLOW UP ANY TRI SINGLE TA (04/09/2024 11:10 AM CDT) Anatomical Region Laterality Modality , 2or 3 TRIMESTER Ultrasound 04/10/2024 7:24 AM CDT Impressions 04/10/2024 7:24 AM CDT Sonographic gestational age 37 weeks 2 days and a sonographic due date 04/28/2024. Good correlation with dates. Normal interval growth. Estimated weight 50th percentile. Abdominal circumference 51st percentile. Dictated by Rehan Uribe MD @ 04/10/2024 7:24:15 AM (Electronically Signed) Narrative 04/10/2024 7:24 AM CDT For Patients: ??As a result of the Cures Act, medical imaging exams and procedure reports are released immediately into your electronic medical record. ??You may view this report before your referring provider. ??If you have questions, please contact your health care provider. INDICATION: Third trimester scan, evaluate growth. COMPARISON: 12/13/2023 TECHNIQUE: Real time berry scale imaging of the fetus was performed as well as color Doppler and spectral Doppler analysis of the umbilical artery. FINDINGS: Sonographic imaging demonstrates a single living intrauterine gestation. ??Fetus demonstrates a regular cardiac rate of 149 beats per minute. ??Fetus has a vertex position. The placenta lies posteriorly without evidence of placenta previa. ??Amniotic fluid volume appears normal and there is a single deepest vertical pocket: 5.2 cm. MAVIS 14.7 cm. Please note that the amniotic fluid measurements on the image report is incorrect. Please referred to the tech sheet. The estimated weight is 2962gm which lies at the 50th %. ??On the prior OB ultrasound exam dated 12/13/2023 the estimated weight was at the 78th%. The biometric indices all lie within normal range. ??The HC/AC ratio measures 1.06 range (0.93-1.11). There is adequate diastolic blood flow within the umbilical artery. ??The S/D ratio measures 1.9. Procedure Note Rehan Uribe MD - 04/10/2024 For Patients: As a result of the Cures Act, medical imagingexams and procedure reports are released immediately into your electronicmedical record. You may view this report before your referring provider.If you have questions, please contact your health care provider. INDICATION: Third trimester scan, evaluate growth. COMPARISON: 12/13/2023 TECHNIQUE: Real time berry scale imaging of the fetus was performed as well as colorDoppler and spectral Doppler analysis of the umbilical artery. FINDINGS: Sonographic imaging demonstrates a single living intrauterine gestation.Fetus demonstrates a regular cardiac rate of 149 beats per minute. Fetushas a vertex position. The placenta lies posteriorly without evidence ofplacenta previa. Amniotic fluid volume appears normal and there is asingle deepest vertical pocket: 5.2 cm. MAVIS 14.7 cm. Please note that theamniotic fluid measurements on the image report is incorrect. Pleasereferred to the tech sheet. The estimated weight is 2962gm whichlies at the 50th %. On the prior OB ultrasound exam dated 12/13/2023 theestimated weight was at the 78th%. The biometric indices alllie within normal range. The HC/AC ratio measures 1.06 range (0.93-1.11).There is adequate diastolic blood flow within the umbilical artery. TheS/D ratio measures 1.9. IMPRESSION: Sonographic gestational age 37 weeks 2 days and a sonographic due date04/28/2024. Good correlation with dates. Normal interval growth. Estimated weight 50th percentile. Abdominal circumference 51stpercentile. Dictated by Rehan Uribe MD @ 04/10/2024 7:24:15 AM (Electronically Signed) Aranza Mendez MD US * US VENOUS LOWER EXTREMITY RIGHT (04/09/2024 10:30 AM CDT) Anatomical Region Laterality Modality LEGS, LEG R, Abdomen Ultrasound 04/09/2024 1:11 PM CDT Impressions 04/09/2024 1:11 PM CDT Normal right lower extremity venous ultrasound, no sign of deep venous thrombosis. Dictated by Tim Dominguez MD @ 04/09/2024 1:11:56 PM (Electronically Signed) Narrative 04/09/2024 1:11 PM CDT For Patients: ??As a result of the Century Cures Act, medical imaging exams and procedure reports are released immediately into your electronic medical record. ??You may view this report before your referring provider. ??If you have questions, please contact your health care provider. INDICATION: Varicose veins during . TECHNIQUE: Ultrasound venous duplex lower right extremity. Compression venous exam was performed using berry-scale, color Doppler, and spectral Doppler analysis. COMPARISON: None. FINDINGS: Deep veins: Sonographic imaging demonstrates the right common femoral, deep femoral, superficial femoral, popliteal, posterior tibial and the contralateral right common femoral veins to be fully compressible with normal color Doppler blood flow. Superficial veins: Greater saphenous vein is fully compressible. No popliteal cyst. Procedure Note Tim Dominguez MD - 04/09/2024 For Patients: As a result of the Cures Act, medical imagingexams and procedure reports are released immediately into your electronicmedical record. You may view this report before your referring provider.If you have questions, please contact your health care provider. INDICATION: Varicose veins during . TECHNIQUE: Ultrasound venous duplex lower right extremity. Compression venous examwas performed using berry-scale, color Doppler, and spectral Doppleranalysis. COMPARISON: None. FINDINGS: Deep veins: Sonographic imaging demonstrates the right common femoral,deep femoral, superficial femoral, popliteal, posterior tibial and thecontralateral right common femoral veins to be fully compressible withnormal color Doppler blood flow. Superficial veins: Greater saphenous vein is fully compressible. No popliteal cyst. IMPRESSION: Normal right lower extremity venous ultrasound, no sign of deep venousthrombosis. Dictated by Tim Dominguez MD @ 04/09/2024 1:11:56 PM (Electronically Signed) Aranza Mendez MD US * (ABNORMAL) HEMOGLOBIN (03/26/2024 11:50 AM CDT) Only the most recent of2 resultswithin the time period is included. HEMOGLOBIN 10.4(L) 12.0 - 16.0 g/dL 03/26/2024 12:[address] [facility] MCV 83 80 - 100 fL 03/26/2024 12:[address] [facility] Blood BLOOD SPECIMEN / Unknown Venipuncture / Unknown 03/26/2024 11:50 AM CDT 03/26/2024 11:51 AM CDT Aranza Mendez MD HEMATOLOGY [facility] [address] [place] [address] * VITAMIN D 25 (DEFICIENCY) (01/16/2024 12:34 PM CDT) VITAMIN D TOTAL 30.6 20.0 - 80.0 ng/mL 01/17/2024 11:33 AM CDT [facility] Blood BLOOD SPECIMEN / Unknown Venipuncture / Unknown 01/16/2024 12:34 PM CDT 01/16/2024 12:34 PM CDT Narrative [facility] - 01/17/2024 11:33 AM CDT ? Vitamin D Status Deficiency: ? <20 ng/mL Insufficiency: ?20-29 ng/mL Sufficiency: ?30-80 ng/mL Possible Toxicity: ??>80 ng/mL Based on [place] of Medicine recommendations Biotin supplements may cause clinically significant interference for this test assay. ??If interference is suspected, it is strongly recommended that biotin is discontinued for at least one week prior to retesting. Aranza Mendez MD SEND OUTS Performing Organization Address City/[facility]/ZIP Co de Phone Number [facility] [address] [place] [address], * GLUCOSE,GESTATIONAL (01/16/2024 12:34 PM CDT) GLUCOSE,GESTAT IONAL 109 70 - 139 mg/dL 01/16/2024 2:[address] [facility] Blood BLOOD SPECIMEN / Unknown Venipuncture / Unknown 01/16/2024 12:34 PM CDT 01/16/2024 12:34 PM CDT Aranza Mendez MD CHEMISTRY [facility] [address] [place] [address] * (ABNORMAL) HPV HIGH RISK (10/17/2023 2:11 PM TOWER LOADER OPERATOR) TYPE 16 Negative Negative 10/21/2023 7:07 AM TOWER LOADER OPERATOR [facility] TYPE 18 Negative Negative 10/21/2023 7:07 AM TOWER LOADER OPERATOR [facility] OTHER HIGH RISK TYPES Positive(A) Negative 10/21/2023 7:07 AM TOWER LOADER OPERATOR [facility] Other (Cervical) Non-Blood / Unknown 10/17/2023 2:11 PM TOWER LOADER OPERATOR 10/18/2023 10:18 AM TOWER LOADER OPERATOR Narrative [facility] - 10/21/2023 7:07 AM TOWER LOADER OPERATOR Specimen is positive for the DNA of any one of, or combination of, the following high risk HPV types: 31, 33, 35, 39, 45, 51, 52, 56, 58, 59, 66, 68. HPV types 16 and 18 DNA were undetectable or below the pre-set threshold. ? Methodology: Ciara Milan 4800 HPV Test Aranza Mendez MD MICROBIOLOG Y Performing Organization Address [facility]/ZIP Co de Phone Number [facility] [address] [place] [address], * ANTI HCV (09/27/2023 9:00 AM TOWER LOADER OPERATOR) HEPATITIS C ANTIBODY Non-Reacti ve Non-React robert 09/28/2023 4:48 AM TOWER LOADER OPERATOR [facility] Comment:Please note, per www .CDC.gov: If a patient is known to be at high risk of HCV infection, or is symptomatic, and the physician's suspicion of HCV infection is high, HCV RNA testing is often employed and is of diagnostic value, even after an initial negative anti-HCV test result. Blood BLOOD SPECIMEN / Unknown Butterfly / Unknown 09/27/2023 9:00 AM TOWER LOADER OPERATOR 09/27/2023 9:02 AM TOWER LOADER OPERATOR Aranza Mendez MD SEND OUTS [facility] [address] [place] [phone], * ANTI HIV 1/2 (09/27/2023 9:00 AM TOWER LOADER OPERATOR) HIV-1/HIV-2 SCREEN Non-Reacti ve Non-Reacti ve 09/28/2023 4:54 AM TOWER LOADER OPERATOR [facility] Comment:HIV-1 p24 and HIV-1/ HIV-2 Ab Not Detected. Blood BLOOD SPECIMEN / Unknown Butterfly / Unknown 09/27/2023 9:00 AM TOWER LOADER OPERATOR 09/27/2023 9:02 AM TOWER LOADER OPERATOR Aranza Mendez MD SEND OUTS Performing Organization Address City/[facility]/ZIP Co de Phone Number [facility] [address] [place] [phone], from Last 3 Months or Most Recently Relevant to Health Maintenance Advance Directives * Full Code (Latest Code Status on File) Date Activated Date Inactivated Comments 02/04/2017 9:09 PM 02/06/2017 2:44 PM * Full Code Date Activated Date Inactivated Comments 02/04/2017 6:52 AM 02/04/2017 9:09 PM * Full Code Date Activated Date Inactivated Comments 02/04/2017 3:28 AM 02/04/2017 6:52 AM * Full Code Date Activated Date Inactivated Comments 02/03/2017 12:13 AM 02/03/2017 5:33 AM * Full Code Date Activated Date Inactivated Comments 09/20/2016 7:17 PM 09/21/2016 12:38 PM Care Teams Biology Research Assistant Relationship Specialty Start Date End Date Aranza Mendez MD [address] [place] [id number] PCP - General Family Practice 01/19/24 Rosita Tobar V, [facility] [address] [address] Dye Beck Reel Operator Criminal Profiler 10/08/16
--- OUTSIDE RECORDS SUMMARY | 2024-04-15 16:51 | XMS_ITS | Clinical Summary ---
Author Organization [facility] Address [place], [place] [address] Care Team Providers Care Grocery Bagger Name Role Phone CYNTHIA Mckoy Elizabeth Unavailable [phone] Aranza Mendez MD Primary Care Provi eloisa [...] Description 04/13/2024 8:25 AM CDT OB Encounter [address] [address] Aranza Mendez MD Testing (Group B strep); Care (37w2d) 04/13/2024 Travel 04/09/2024 1:10 PM CDT OB Encounter [address] [address] Aranza Mendez MD Care (36w5d) 04/09/2024 9:56 AM CDT - 04/09/2024 11:59 PM CDT Hospital Encounter [facility] [address] [place] [address] Varicose veins during ; Class 2 severe obesity with body mass index (BMI) of 35 to 39.9 with serious comorbidity (HC); Encounter for supervision of other normal in third trimester 04/09/2024 Travel 03/26/2024 10:55 AM CDT OB Encounter [address] [address] Aranza Mendez MD Care (34w5d) 03/26/2024 Travel 03/09/2024 8:45 AM CDT Office Visit [address] [address] Karina Bennett MD Varicose Veins (Have gotten worse since last OB visit. Painful, sometimes they are warm and swollen) 03/09/2024 Travel 03/09/2024 Nurse Triage [address] [address] Aranza Mendez MD Leg Pain/problem 03/06/2024 10:20 AM CDT Office Visit [facility] [address] [place] [phone] Maria C Hoover, ROYCE Eye Exam 03/06/2024 Travel 02/15/2024 8:25 AM CDT OB Encounter [address] [address] Aranza Mendez MD Care (29w0d) 02/15/2024 Travel 01/16/2024 11:20 AM CDT OB Encounter [address] [address] Aranza Mendez MD Care (24w5d) 01/16/2024 Travel [...] alone Communication Method: Patient is active on viVood and has been instructed that results/communications will be made via viVood If a phone call is needed, the preferred number is: Mobile May we leave a detailed message at this number? Yes Tiffaine Valerio CMA 04/09/2024 1:24 PM See OB [...] repeat growth ultrasound pending. Vitamin D: take 0775-7973 daily. Continue prenatals. ~ Follow up: 1 [...] other Communication Method: Patient is active on viVood and has been instructed that results/communications will be made via viVood If a phone call is needed, the [...] repeat in third trimester. Vitamin D: take 4796-1155 daily. Continue prenatals. THUAN: -Continue iron, check [...] alone Communication Method: Patient is active on viVood and has been instructed that results/communications will be made via viVood If a phone call is needed, the [...] at night. Any Vaginal Bleeding?: no Contractions?: [place] spivey Urinary Complaints?: no Movement: yes Patient [...] return OB visit. ICD-10-CM 1. Need for vjrrtavchc-fcnnbzw-kgekwwnck (Tdap) vaccine Z23 2. Supervision of other [...] repeat in third trimester. Vitamin D: take 2868-8255 daily. Continue prenatals. THUAN: -Continue iron, check [...] alone Communication Method: Patient is active on viVood and has been instructed that results/communications will be made via viVood If a phone call is needed, the preferred number is: Mobile May we leave a detailed message at this number? Yes Tiffanie Valerio, [facility] 01/16/2024 11:41 AM See OB Vitals section [...] repeat in third trimester. Vitamin D: take 5646-8729 daily. Continue prenatals. ~ Follow up: 4 [...] other Communication Method: Patient is active on viVood and has been instructed that results/communications will be made via viVood If a phone call is needed, the [...] ultrasound recommended -Hemoglobin a1c Vitamin D: take 6783-9399 daily. Continue prenatals. Satisfactory exam. Demonstrates appropriate [...] This Encounter sertraline (ZOLOFT) 50 mg tablet Aranza Mendez MD Progress Notes - OB [...] been talking with public health from the [facility] for services. Has WIC. Has a history [...] Pap smear for cervical cancer screening Z12.4 EDITOR DEPARTMENT THIN PREP PAP SCREEN IMAGED 7. BV [...] ultrasound recommended -Hemoglobin a1c Vitamin D: take 6175-2132 daily. Continue prenatals. Satisfactory exam. Demonstrates appropriate [...] Total time preparing to see this patient, [id number]-jb-iclp time, and coordinating care time on the same calendar date: 45 minutes. D AUTO APPRAISER Progress Notes - OB Encounte r - 09/16/2023 - GA:7w2d 09/16/2023 - 7w2d - Ashley Spencer RN See staff note. Ashley Spencer RN .................... 09/16/2023 9:48 AM D AUTO APPRAISER Last Filed Vital Signs Vital Sign Reading Time Taken Comments Blood Pressure 104/66 04/13/2024 8:38 AM CDT Pulse 80 04/13/2024 8:38 AM CDT Temperature 36.7 ??C (98.1 ??F) 08/15/2020 7:17 AM CS T Respiratory Rate 12 03/09/2024 8:58 AM CDT Oxygen Saturation 98% 08/15/2020 11:07 AM FIELD AUTO APPRAISER Inhaled Oxygen Concentration - - Weight 97.6 kg (215 lb 3.2 oz) 04/13/2024 8:38 A M CDT Height 159.4 cm (5' 2.75) 09/16/2023 9:50 AM CS T Body Mass Index 38.43 09/16/2023 9:50 AM FIELD AUTO APPRAISER Plan of Treatment Upcoming Encounters Date Type Department Care Team (Late st Contact Info) Description 04/18/2024 11:45 AM CDT OB Encounter [address] [phone] Aranza Mendez MD [address] [place] [address] 04/23/2024 11:45 AM CDT OB Encounter [facility] [address] [place] [address] Aranza Mendez MD [address] [place] [address] 05/02/2024 Hospital Encounter [facility] [address] [place] [address] Aranza Mendez MD [address] [place] [address] 05/02/2024 1:10 PM CDT OB Encounter [address] [place] [phone] Aranza Mnedez MD 100 [place] [address] 05/07/2024 1:10 PM CDT OB Encounter [facility] 100 [place] [phone] Aranza Mendez MD 100 [facility], [place] [phone] Health Maintenance Due Date Last Done Comments [...] SIGNS OF RELAPSE Diet Rosita Russo V, RN PATIENT SERVICES Note: Patient will be able to get her medications, Zoloft, to manage her symptoms of depression. Other Diet No Rosita Tobar LICSW Note: Patient will enroll in the [place] [facility] care academy. Other General Yes Rosita Tobar [...] HPV THIN PREP Routine 10/17/2023 2:11 PM FIELD AUTO APPRAISER Pap smear for cervical cancer screening ANTI HIV 1/2 Routine 09/27/2023 9:00 AM FIELD AUTO APPRAISER Possible , not yet confirmed ANTI HCV Routine 09/27/2023 9:00 AM FIELD AUTO APPRAISER Possible , not yet confirmed from Last [...] - 16.0 g/dL 03/26/2024 12:04 PM CDT [facility] MCV 83 80 - 100 fL 03/26/2024 12:04 PM T [facility] Blood BLOOD SPECIMEN / Unknown Venipuncture / Unknown 03/26/2024 11:50 AM CDT 03/26/2024 11:51 AM CDT Aranza Mendez MD HEMATOLOGY [facility] [address] [place] [address] * VITAMIN D 25 (DEFICIENCY) (01/16/2024 12:34 PM CDT) VITAMIN D TOTAL 30.6 20.0 - 80.0 ng/mL 01/17/2024 11:33 AM CDT [facility] Blood BLOOD SPECIMEN / Unknown Venipuncture / Unknown 01/16/2024 12:34 PM CDT 01/16/2024 12:[address] [facility] - 01/17/2024 11:33 AM CDT ? Vitamin D Status Deficiency: ? <20 ng/mL Insufficiency: ?20-29 ng/mL Sufficiency: ?30-80 ng/mL Possible Toxicity: ??>80 ng/mL Based on [place] of Medicine recommendations Biotin supplements may cause clinically significant interference for this test assay. ??If interference is suspected, it is strongly recommended that biotin is discontinued for at least one week prior to retesting. Aranza Mendez MD SEND OUTS Performing Organization Address City/[facility]/ZIP Co de Phone Number [facility] [address] [place] [address], * GLUCOSE,GESTATIONAL (01/16/2024 12:34 PM CDT) GLUCOSE,GESTAT IONAL 109 70 - 139 mg/dL 01/16/2024 2:11 PM CDT [facility] Blood BLOOD SPECIMEN / Unknown Venipuncture / Unknown 01/16/2024 12:34 PM CDT 01/16/2024 12:34 PM CDT Aranza Mendez MD CHEMISTRY [facility] [address] [place] [address] * (ABNORMAL) HPV HIGH RISK (10/17/2023 2:11 PM FIELD AUTO APPRAISER) TYPE 16 Negative Negative 10/21/2023 7:07 AM FIELD AUTO APPRAISER [facility] TYPE 18 Negative Negative 10/21/2023 7:07 AM FIELD AUTO APPRAISER [facility] OTHER HIGH RISK TYPES Positive(A) Negative 10/21/2023 7:07 AM FIELD AUTO APPRAISER [facility] Other (Cervical) Non-Blood / Unknown 10/17/2023 2:11 PM FIELD AUTO APPRAISER 10/18/2023 10:18 AM FIELD AUTO APPRAISER Narrative [facility] - 10/21/2023 7:07 AM FIELD AUTO APPRAISER Specimen is positive for the DNA of any one of, or combination of, the following high risk HPV types: 31, 33, 35, 39, 45, 51, 52, 56, 58, 59, 66, 68. HPV types 16 and 18 DNA were undetectable or below the pre-set threshold. ? Methodology: Ciara Milan 4800 HPV Test Aranza Mendez MD MICROBIOLOG Y Performing Organization Address [facility]/ZIP Co de Phone Number [facility] [address] [place] [address], * ANTI HCV (09/27/2023 9:00 AM FIELD AUTO APPRAISER) HEPATITIS C ANTIBODY Non-Reacti ve Non-React robert 09/28/2023 4:48 AM FIELD AUTO APPRAISER [facility] Comment:Please note, per www .CDC.gov: If a patient is known to be at high risk of HCV infection, or is symptomatic, and the physician's suspicion of HCV infection is high, HCV RNA testing is often employed and is of diagnostic value, even after an initial negative anti-HCV test result. Blood BLOOD SPECIMEN / Unknown Butterfly / Unknown 09/27/2023 9:00 AM FIELD AUTO APPRAISER 09/27/2023 9:02 AM FIELD AUTO APPRAISER Aranza Mendez MD SEND OUTS [facility] [address] [place] [address], * ANTI HIV 1/2 (09/27/2023 9:00 AM FIELD AUTO APPRAISER) HIV-1/HIV-2 SCREEN Non-Reacti ve Non-Reacti ve 09/28/2023 4:54 AM FIELD AUTO APPRAISER [facility] Comment:HIV-1 p24 and HIV-1/ HIV-2 Ab Not Detected. Blood BLOOD SPECIMEN / Unknown Butterfly / Unknown 09/27/2023 9:00 AM FIELD AUTO APPRAISER 09/27/2023 9:02 AM FIELD AUTO APPRAISER Aranza Mendez MD SEND OUTS Performing Organization Address City/[facility]/ZIP Co de Phone Number [facility] [address] [place] [address], from Last 3 Months or Most Recently [...] 7:17 PM 09/21/2016 12:38 PM Care Teams Grocery Bagger Relationship Specialty Start Date End Date Aranza Mendez MD [address] [place] [address] PCP - General Family Practice 01/19/24 Rosita Tobar V, [facility] [place] [address] [address] Quill Cleaning Machine Operator Supervisor Braiding 10/08/16
[2024-04-15] MEDS: ACETAMINOPHEN 500 MG TABLET 1000 MG PO (16:56)
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
== END 2024-04-15 18:20 | disposition home or self-care (01) ==
LOC: ED 16:04 → OB OUT 16:50 → OB 16:52
PROVIDERS: Emergency Provider Emergency Medicine; Visit Provider Obstetrics & Gynecology
DX: O26.893 Other specified pregnancy related conditions, third trimester (principal); S29.9XXA Unspecified injury of thorax, initial encounter; Z3A.37 37 weeks gestation of pregnancy
CPT/HCPCS: 59025; 99283; G0463; A9270